=== PATIENT | female | born 1935 | race African-American/Black ===

== ENCOUNTER 2019-09-12 10:02 | Inpatient (IN) | payer OTHER ==
[~2019-09-12] VITALS: Ht 160 cm; Wt 52.2 kg
[2019-09-12] MEDS ORDERED: KETOROLAC 30MG/ML VIAL IV ONE (10:15)
[2019-09-12] MEDS ORDERED: VANCOMYCIN 1 G PREMIX 200 ML IV ONE (11:15)
[2019-09-12] MEDS ORDERED: PIPERACILLIN/TAZ 3.375G PREMIX 50 ML IV ONE (11:15)
[2019-09-12 11:16] LABS: CHLORIDE 111 mEq/L (98-107)
[2019-09-12 11:21] LABS: PROTHROMBIN TIME 10.4 sec (9.6-11.0)
[2019-09-12 11:25] LABS: BASOPHILS % 0.3 % (0.0-2.0); EOSINOPHILS % 0.8 % (0.0-5.0); HEMATOCRIT. 28.7 % (36.0-48.0); HEMOGLOBIN. 9.4 g/dL (12.0-16.0); MEAN CORPUSCULAR HEMOGLOBIN 28.5 pg (28.0-32.0); MEAN CORPUSCULAR VOLUME 87.4 fL (81.0-99.0); MEAN PLATELET VOLUME 8.5 fl (7.4-10.4); MONOCYTES % 4.3 % (2.0-8.0); NEUTROPHILS % 81.6 % (40.0-76.0); PLATELET 311 x1000/uL (130-400); RED BLOOD CELL COUNT 3.28 mill/uL (4.2-5.4); RED CELL DISTRIBUTION WIDTH 16.4 % (11.6-14.6)
[2019-09-12 11:57] LABS: CLARITY URINE TURBID (CLEAR); COLOR URINE ORANGE (YELLOW); KETONES URINE NEGATIVE (NEGATIVE); LEUKOCYTE ESTERASE URINE 3+ (NEGATIVE); NITRITE URINE POSITIVE (NEGATIVE); OCCULT BLOOD URINE 3+ (NEGATIVE); PROTEIN URINE 2+ (NEGATIVE); SPECIFIC GRAVITY URINE 1.018 (1.005-1.030)
[2019-09-12] MEDS ORDERED: MAGNESIUM/ALUMINUM HYDROXIDE/SIMETHICONE 30ML UDC PO PRN (12:15)
[2019-09-12] MEDS ORDERED: IPRATROPIUM/ALBUTEROL 0.5-3(2.5)MG/3ML NEB NEB PRN (12:15)
[2019-09-12] MEDS ORDERED: MORPHINE SULFATE 2 MG/ML CPJ (NOT FOR IM USE) IV PRN (12:15)
[2019-09-12] MEDS ORDERED: GUAIFENESIN 200MG/10ML SUGAR FREE UDC PO PRN (12:15)
[2019-09-12] MEDS ORDERED: DIPHENHYDRAMINE 50MG/ML VIAL IV PRN (12:15)
[2019-09-12] MEDS ORDERED: ACETAMINOPHEN 325MG TABLET PO PRN (12:15)
[2019-09-12] MEDS ORDERED: DOCUSATE SODIUM 100MG CAPSULE PO PRN (12:15)
[2019-09-12] MEDS ORDERED: NA PHOS,M-B/NA PHOS,DI-BA ENEMA 118ML PR PRN (12:15)
[2019-09-12] MEDS ORDERED: ONDANSETRON HCL 4MG/2ML INJ IV PRN (12:15)
[2019-09-12] MEDS ORDERED: CLONIDINE 0.1MG TABLET PO PRN (12:15)
[2019-09-12] MEDS ORDERED: LORAZEPAM 2MG/ML CPJ IV PRN (12:15)
[2019-09-12] MEDS ORDERED: HYDROCODONE/ACETAMINOPHEN 5/325MG TABLET PO PRN (12:15)
[2019-09-12 12:25] LABS: BG CARBOXYHEMOGLOBIN 1.7 % (0.5-1.5); BG DEOXYHEMOGLOBIN 6.7 % (0.0-5.0); BG FRACTION INSPIRED OXYGEN 21; BG HCO3 ACT 21.9 mmol/L (22.0-26.0); BG METHEMOGLOBIN 0.1 % (0.0-1.5); BG OXYGEN SATURATION 93.2 % (92.0-98.5); BG OXYHEMOGLOBIN 91.5 % (94.0-97.0); BG PCO2 33.5 mmHg (35.0-45.0); BG PH 7.433 (7.350-7.450); BG PO2 63.5 mmHg (75.0-100.0); BG SAMPLE SITE RIGHT RADIAL; BG VENT MODE ROOM AIR
[2019-09-12] MEDS: SODIUM CHLORIDE 0.45% 1,000 ML IV SCH (12:33)
[2019-09-12] MEDS: PANTOPRAZOLE SODIUM 40 MG/VIAL IV SCH (14:37)
[2019-09-12 16:00] VITALS: BP 131/67
[2019-09-12] MEDS ORDERED: CEFTRIAXONE 1 G PREMIX 50 ML IV SCH (16:30)
[2019-09-12 16:56] VITALS: BP 164/75
[2019-09-12] MEDS ORDERED: DEXTROSE 50% WATER 50ML SYRINGE IV PRN (17:15)
[2019-09-12] MEDS: INSULIN LISPRO 100 UNITS/ML SUBCUT SCH ×2 (18:10→21:00)
[2019-09-12] MEDS: BLOOD SUGAR DIAGNOSTIC STRIP TEST SCH ×2 (18:24→21:13)
[2019-09-12 20:00] VITALS: BP 141/74
[2019-09-12] MEDS: CEFTRIAXONE 1,000 MG in DEXTROSE 5% WATER 50 ML IV SCH (20:14)
[2019-09-12 21:26] LABS: HEMATOCRIT 27.9 % (36.0-48.0); HEMOGLOBIN 9.2 g/dL (12.0-16.0)
[2019-09-12] MEDS: AMLODIPINE 2.5MG TABLET PO SCH (21:47)
[2019-09-13] VITALS: BP 137/75
[2019-09-13 00:31] LABS: HEMATOCRIT 27.4 % (36.0-48.0); HEMOGLOBIN 9.1 g/dL (12.0-16.0)
[2019-09-13 04:00] VITALS: BP 146/81
[2019-09-13] MEDS: SODIUM CHLORIDE 0.45% 1,000 ML IV SCH (05:16)
[2019-09-13 06:35] LABS: CHLORIDE 111 mEq/L (98-107)
[2019-09-13 06:39] LABS: BASOPHILS % 0.2 % (0.0-2.0); EOSINOPHILS % 1.3 % (0.0-5.0); HEMATOCRIT. 27.1 % (36.0-48.0); HEMOGLOBIN. 8.9 g/dL (12.0-16.0); LYMPHOCYTES % 17.5 % (20.0-50.0); MEAN CORPUSCULAR HEMOGLOBIN 28.9 pg (28.0-32.0); MEAN CORPUSCULAR VOLUME 87.6 fL (81.0-99.0); MEAN PLATELET VOLUME 8.9 fl (7.4-10.4); MONOCYTES % 4.9 % (2.0-8.0); NEUTROPHILS % 76.1 % (40.0-76.0); PLATELET 319 x1000/uL (130-400); RED BLOOD CELL COUNT 3.09 mill/uL (4.2-5.4); RED CELL DISTRIBUTION WIDTH 16.6 % (11.6-14.6)
[2019-09-13 06:51] LABS: LDL CHOLESTEROL 48 mg/dL (5-100)
[2019-09-13 06:52] LABS: HDL CHOLESTEROL 50 mg/dL (40-59); T4 FREE 0.46 ng/dL (0.76-1.46)
[2019-09-13] MEDS: BLOOD SUGAR DIAGNOSTIC STRIP TEST SCH ×4 (07:40→21:44)
[2019-09-13] MEDS: INSULIN LISPRO 100 UNITS/ML SUBCUT SCH ×4 (07:40→21:00)
[2019-09-13 08:00] VITALS: BP_SYST 149; BP_SYST 151; BP_DIAS 75; BP_DIAS 93
[2019-09-13] MEDS: PANTOPRAZOLE SODIUM 40 MG/VIAL IV SCH (08:57)
[2019-09-13] MEDS: AMLODIPINE 2.5MG TABLET PO SCH (09:06)
[2019-09-13 12:00] VITALS: BP 110/79
[2019-09-13] MEDS: LEVOTHYROXINE SODIUM 75MCG TABLET PO SCH (13:11)
[2019-09-13] MEDS: ALLOPURINOL 100 MG TABLET PO SCH (13:11)
[2019-09-13] MEDS: DOCUSATE SODIUM 100MG CAPSULE PO SCH (14:59)
[2019-09-13] MEDS: IRON SUCROSE COMPLEX 100 MG/5 ML ML IV SCH (15:28)
[2019-09-13 16:00] VITALS: BP 80/36
[2019-09-13] MEDS: CEFTRIAXONE 1,000 MG in DEXTROSE 5% WATER 50 ML IV SCH (18:00)
[2019-09-13 20:00] VITALS: BP 160/85
[2019-09-13] MEDS: AMLODIPINE 5MG TABLET PO SCH (21:44)
[2019-09-13] MEDS: ALBUTEROL 6.7GM HFA INHALER ORI SCH (22:52)
[2019-09-14] VITALS: BP 141/80
[2019-09-14 04:00] VITALS: BP 101/54
[2019-09-14] MEDS: ALBUTEROL 6.7GM HFA INHALER ORI SCH ×5 (04:36→22:35)
[2019-09-14 06:53] LABS: BASOPHILS % 0.1 % (0.0-2.0); EOSINOPHILS % 1.4 % (0.0-5.0); HEMATOCRIT. 28.8 % (36.0-48.0); HEMOGLOBIN. 9.3 g/dL (12.0-16.0); LYMPHOCYTES % 15.1 % (20.0-50.0); MEAN CORPUSCULAR VOLUME 86.4 fL (81.0-99.0); MEAN PLATELET VOLUME 8.3 fl (7.4-10.4); MONOCYTES % 5.4 % (2.0-8.0); PLATELET 395 x1000/uL (130-400); RED BLOOD CELL COUNT 3.34 mill/uL (4.2-5.4); RED CELL DISTRIBUTION WIDTH 16.3 % (11.6-14.6)
[2019-09-14] MEDS: BLOOD SUGAR DIAGNOSTIC STRIP TEST SCH ×4 (07:40→21:16)
[2019-09-14 08:00] VITALS: BP 154/74
[2019-09-14] MEDS: INSULIN LISPRO 100 UNITS/ML SUBCUT SCH ×4 (08:10→21:00)
[2019-09-14] MEDS: ALLOPURINOL 100 MG TABLET PO SCH (09:33)
[2019-09-14] MEDS: DOCUSATE SODIUM 100MG CAPSULE PO SCH ×2 (09:34→17:00)
[2019-09-14] MEDS: LEVOTHYROXINE SODIUM 75MCG TABLET PO SCH (09:35)
[2019-09-14] MEDS: AMLODIPINE 5MG TABLET PO SCH ×2 (09:35→21:15)
[2019-09-14] MEDS: PANTOPRAZOLE SODIUM 40 MG/VIAL IV SCH (09:36)
[2019-09-14 12:00] VITALS: BP 93/55
[2019-09-14] MEDS: IRON SUCROSE COMPLEX 100 MG/5 ML ML IV SCH (15:03)
[2019-09-14] MEDS: AZITHROMYCIN 250 MG TABLET PO SCH (15:05)
[2019-09-14 16:00] VITALS: BP 115/60
[2019-09-14] MEDS: CEFTRIAXONE 1,000 MG in DEXTROSE 5% WATER 50 ML IV SCH (17:10)
[2019-09-14] MEDS: ENOXAPARIN 60MG/0.6ML SYR SUBCUT SCH (17:17)
[2019-09-14 20:00] VITALS: BP 147/96
[2019-09-15] VITALS (7 sets, daily range): BP systolic 113–150; BP diastolic 51–80
[2019-09-15] MEDS: ALBUTEROL 6.7GM HFA INHALER ORI SCH ×3 (04:47→15:49)
[2019-09-15] MEDS: BLOOD SUGAR DIAGNOSTIC STRIP TEST SCH ×2 (07:44→12:06)
[2019-09-15] MEDS: INSULIN LISPRO 100 UNITS/ML SUBCUT SCH ×2 (07:45→12:42)
[2019-09-15] MEDS: LEVOTHYROXINE SODIUM 75MCG TABLET PO SCH (08:40)
[2019-09-15] MEDS: ALLOPURINOL 100 MG TABLET PO SCH (08:53)
[2019-09-15] MEDS: AZITHROMYCIN 250 MG TABLET PO SCH (08:53)
[2019-09-15] MEDS: PANTOPRAZOLE SODIUM 40 MG/VIAL IV SCH (08:53)
[2019-09-15] MEDS: DOCUSATE SODIUM 100MG CAPSULE PO SCH (08:54)
[2019-09-15] MEDS: AMLODIPINE 5MG TABLET PO SCH (08:54)
[2019-09-15] MEDS: IRON SUCROSE COMPLEX 100 MG/5 ML ML IV SCH (15:49)
[2019-09-15] MEDS: ENOXAPARIN 60MG/0.6ML SYR SUBCUT SCH (15:49)
== END 2019-09-15 16:20 | disposition short-term general hospital (02) | DRG 177 ==
LOC: ER 10:02 → 7WST 11:54 → EDBEDREQSVC 12:02 → EDBEDREQ 12:02 → ENRESERV 14:43
PROVIDERS: ADMIT Internal Medicine; ATTEND Internal Medicine
DX: U07.1 COVID-19 (principal); N17.0 Acute kidney failure with tubular necrosis; J96.01 Acute respiratory failure with hypoxia; J12.89 Other viral pneumonia; E46 Unspecified protein-calorie malnutrition; N39.0 Urinary tract infection, site not specified; I13.0 Hypertensive heart and chronic kidney disease with heart failure and stage 1 through stage 4 chronic kidney disease, or unspecified chronic kidney disease; K92.2 Gastrointestinal hemorrhage, unspecified; D64.9 Anemia, unspecified; E03.9 Hypothyroidism, unspecified; E11.22 Type 2 diabetes mellitus with diabetic chronic kidney disease; F03.90 Unspecified dementia, unspecified severity, without behavioral disturbance, psychotic disturbance, mood disturbance, and anxiety; M10.9 Gout, unspecified; N18.9 Chronic kidney disease, unspecified; L89.159 Pressure ulcer of sacral region, unspecified stage; G89.29 Other chronic pain; E83.51 Hypocalcemia; B97.89 Other viral agents as the cause of diseases classified elsewhere; B96.20 Unspecified Escherichia coli [E. coli] as the cause of diseases classified elsewhere; I49.3 Ventricular premature depolarization; I49.1 Atrial premature depolarization; I50.9 Heart failure, unspecified; Z68.20 Body mass index [BMI] 20.0-20.9, adult
CPT/HCPCS: 36415; 36600; 71045; 80048; 80053; 80061; 81003; 82270; 82375; 82728; 82805; 82962; 83036; 83540; 83550; 83605; 83735; 83880; 84145; 84439; 84443; 84481; 84484; 84550; 85014; 85018; 85025; 87077; 87186; 87635; 93005; 99291; C9113; J0696; J1650; J1885; J2060; J2270; J2543; J3370; J7060